=== PATIENT | male | born 1995 | race Caucasian/White ===

== ENCOUNTER 2016-10-26 23:07 | Emergency (ER) | payer OTHER ==
[~2016-10-26] VITALS: Ht 188 cm; Wt 125.7 kg
[~2016-10-26 23:07] MED LIST: BENZ100C84 PO; BUPR-83 PO; CNC/36 PO; CNC/54 PO; IBUP600T44 PO; TOPI100T20 PO
[2016-10-26 23:18] VITALS: TEMP 36.8; Ht 188 cm; Wt 125.7 kg
[2016-10-26] MEDS ORDERED: VNTHFA/IN INH (23:43)
[2016-10-27 00:18] LABS: BASO % 0.7 %; BASO ABS # 0.07 K/uL (0-0.2); COMPLETE YES; EOS % 12.5 %; HEMATOCRIT 43.1 % (42-52); IG% 0.1 %; LYMPH ABS # 3.93 K/uL (1.2-3.4); MEAN CELL VOLUME 81.3 fL (80-100); MEAN CORPUSCULAR HEMOGLOBIN 28.9 pg (25-34); MEAN CORPUSCULAR HGB CONC 35.5 g/dl (32-36); MEAN PLATELET VOLUME 9.5 fL (7.4-10.4); MONO % 7.7 %; PLATELET COUNT 282 K/uL (130-400); WHITE BLOOD COUNT 10.63 K/uL (4.8-10.8)
[2016-10-27 00:35] LABS: CALCIUM 8.6 mg/dl (8.5-10.1); CREATININE 0.84 mg/dl (0.60-1.40); POTASSIUM 3.7 mmol/L (3.5-5.1)
[2016-10-27 00:39] LABS: BENZODIAZEPINE, URINE NEG (NEG); COCAINE,URINE NEG (NEG); PHENCYCLIDINE, URINE NEG (NEG)
[2016-10-27 00:45] LABS: THYROID STIMULATING HORMONE 4.85 uIu/ml (0.300-4.500)
[2016-10-27 01:00] VITALS: BP 147/44; PULSE 59; O2SAT 97
--- NOTE | 2016-10-27 01:09 | EMERGENCY ROOM VISIT NOTE ---
History First contact with patient: 23:24 Chief Complaint: HEAD INJURY (MINOR) Stated Complaint: HEAD INJURY 2WEEKS AGO, BEHAVIOR CHANGES History of Present Illness The patient is a 21 year old male who presents to the Emergency Room with complaints of head injury 2 weeks ago he slipped and fell striking his head on a rock while hiking with his girlfriend. He went to [facility] and they did an x-ray on his chin that was negative. Patient states he has had greater than 10 concussions in his lifetime. Patient states he feels pastrana and has headaches and feels nauseous. He has not gone to rehabilitation for his postconcussion syndrome in the past. Patient denies alcohol, tobacco or drug use. Patient denies chest pain, dyspnea, fever, chills, balance problems, vision problems, delusions, hallucinations, suicidal or homicidal ideations, abdominal pain, vomiting, diarrhea, numbness, tingling. Patient sees a therapist at [facility]. He is unable to recall the name. He states that every 3 months for his ADHD medications and bipolar. No prior mental health hospitalizations. Review of Systems See HPI for pertinent positives & negatives. A total of 10 systems reviewed and were otherwise negative. Past Medical/Surgical History Chronic headaches, bipolar, ADHD, multiple concussions, tonsillectomy, adenectomy Family History No pertinent family history Social History Smoking Status: Never Smoker Alcohol Use: none Drug Use: none Marital Status: in relationship Housing Status: lives with family Occupation Status: employed Current/Historical Medications Scheduled Bupropion (Wellbutrin), 100 MG PO DAILY Methylphenidate Hcl (Concerta), 36 MG PO DAILY Methylphenidate Hcl (Concerta), 54 MG PO DAILY Topiramate (Topamax), 100 MG PO BID Scheduled PRN Albuterol Hfa (Ventolin Hfa), 2 PUFFS INH Q6H PRN for SOB/Wheezing Allergies Coded Allergies: No Known Allergies (Verified , 10/26/16) Physical Exam Vital Signs Date Time Temp Pulse Resp B/P Pulse Ox O2 Delivery O2 Flow Rate FiO2 10/26/16 23:18 36.8 89 20 131/66 96 Room Air Physical Exam VITALS: Vitals are noted on the nurse's note and reviewed by myself. Vital signs stable. GENERAL: Pleasant male, in no acute distress, nondiaphoretic, well-developed well-nourished. SKIN: The skin was without rashes, erythema, edema, or bruising. There is no tenting of the skin. Capillary reflex less than 2 seconds. HEAD: Normocephalic atraumatic. EARS: External auditory canals clear, tympanic membranes pearly olivares without erythema or effusion bilaterally. EYES: Pupils equal round and reactive to light and accommodation. Conjunctivae without injection, sclerae without icterus. Extraocular movements intact. NOSE: Patent, turbinates without inflammation or discharge. No sinus tenderness. MOUTH: Mucous membranes moist. . Pharynx without erythema or exudate. Uvula midline. Airway patent. Tongue does not deviate. NECK: Supple without nuchal rigidity. No lymphadenopathy. No thyromegaly. Cervical spine is nontender. No JVD. HEART: Regular rate and rhythm without murmurs gallops or rubs. LUNGS: Clear to auscultation bilaterally without wheezes, rales or rhonchi. No dullness to percussion. No retractions or accessory muscle use. ABDOMEN: Positive bowel sounds x 4. Normal tympanic percussion. Soft, nontender, without masses or organomegaly. Arce sign negative. No guarding or rebound tenderness. MUSCULOSKELETAL: No muscle atrophy, erythema, or edema noted. NEURO: Patient was alert and oriented to person place and time. Normal sensation to light and sharp touch. No focal neurological deficits. Cranial nerves II-12 grossly intact. Cerebellar exam intact Psych: Cooperative and pleasant Medical Decision & Procedures Laboratory Results 10/27/16 00:05 Red Blood Count 5.30, Mean Corpuscular Volume 81.3, Mean Corpuscular Hemoglobin 28.9, Mean Corpuscular Hemoglobin Concent 35.5, Mean Platelet Volume 9.5, Neutrophils (%) (Auto) 42.0, Lymphocytes (%) (Auto) 37.0, Monocytes (%) (Auto) 7.7, Eosinophils (%) (Auto) 12.5, Basophils (%) (Auto) 0.7, Neutrophils # (Auto ) 4.47, Lymphocytes # (Auto) 3.93, Monocytes # (Auto) 0.82, Eosinophils # (Auto ) 1.33, Basophils # (Auto) 0.07 10/27/16 00:05 Test 10/27/16 00:05 10/27/16 00:10 White Blood Count 10.63 K/uL (4.8-10.8) Red Blood Count 5.30 M/uL (4.7-6.1) Hemoglobin 15.3 g/dL (14.0-18.0) Hematocrit 43.1 % (42-52) Mean Corpuscular Volume 81.3 fL (80-100) Mean Corpuscular Hemoglobin 28.9 pg (25-34) Mean Corpuscular Hemoglobin Concent 35.5 g/dl (32-36) Platelet Count 282 K/uL (130-400) Mean Platelet Volume 9.5 fL (7.4-10.4) Neutrophils (%) (Auto) 42.0 % Lymphocytes (%) (Auto) 37.0 % Monocytes (%) (Auto) 7.7 % Eosinophils (%) (Auto) 12.5 % Basophils (%) (Auto) 0.7 % Neutrophils # (Auto) 4.47 K/uL (1.4-6.5) Lymphocytes # (Auto) 3.93 K/uL (1.2-3.4) Monocytes # (Auto) 0.82 K/uL (0.11-0.59) Eosinophils # (Auto) 1.33 K/uL (0-0.5) Basophils # (Auto) 0.07 K/uL (0-0.2) RDW Standard Deviation 39.5 fL (36.4-46.3) RDW Coefficient of Variation 13.3 % (11.5-14.5) Immature Granulocyte % (Auto) 0.1 % Immature Granulocyte # (Auto) 0.01 K/uL (0.00-0.02) Anion Gap 11.0 mmol/L (3-11) Est Creatinine Clear Calc Drug Dose 194.4 ml/min Estimated GFR () 144.0 Estimated GFR (Non- 124.3 BUN/Creatinine Ratio 24.0 (10-20) Calcium Level 8.6 mg/dl (8.5-10.1) Thyroid Stimulating Hormone (TSH) 4.850 uIu/ml (0.300-4.500) Urine Opiates Screen NEG (NEG) Urine Methadone, Qualitative NEG (NEG) Urine Barbiturates NEG (NEG) Urine Phencyclidine (PCP) Level NEG (NEG) Ur Amphetamine/Methamphetamine NEG (NEG) MDMA (Ecstasy) Screen NEG (NEG) Urine Benzodiazepines Screen NEG (NEG) Urine Cocaine Metabolite NEG (NEG) Urine Marijuana (THC) NEG (NEG) ED Course Prior records/ancillary studies reviewed. Triage Nursing notes reviewed. Additional history obtained from family. The patient's history was concerning for traumatic head injury Differential diagnosis: Etiologies such as concussion, contusion, fracture, subdural hematoma, epidural hematoma, intraparenchymal hemorrhage, as well as other traumatic pathologies were entertained. Physical examination findings: As above. ER treatment provided: Patient was observed On reassessment the patient felt better. Diagnostics interpreted by me: The labs revealed no worrisome leukocytosis or electrolyte abnormality. Negative UDS Imaging studies: Brain CT was read by stat radiology negative for intracranial bleed or fracture It appears the patient has a concussion. I discussed the risks and the benefits of CT scanning. Clinically the patient is doing well but is pastrana and is having increasing symptoms so CT imaging was ordered. I gave my usual and customary discussion regarding this issue. Patient was strongly encouraged to follow-up with the concussion clinic here in [facility]. He was informed that multiple concussions can lead to early onset dementia and chronic symptoms. He states he is well aware this. He was strongly encouraged to follow-up family medicine in a few days or here in the ER sooner for headache, fevers, vomiting, lethargy , worsening signs or symptoms or as needed. Patient was neurovascularly and neurologically intact. He was well-appearing. No deficits on exam.By the evaluation outlined above emergent etiologies such as fracture, subdural hematoma, epidural hematoma, intraparenchymal hemorrhage, as well as others were deemed relatively unlikely. The pt informed about the findings as listed above. All questions were answered and pleased with the treatment. Return instructions were outlined and the patient was discharged in stable condition. Outpatient Prescription Management: jeannefran Referral: The patient was referred back to their primary care physician for follow-up in 2 to 3 days for a recheck of the current condition. Medical Decision as above Impression Primary Impression: Postconcussion syndrome Departure Information Dispostion Home / Self-Care Condition GOOD Referrals Jesse Turner III, M.D. (PCP) Patient Instructions My [facility] Additional Instructions Recommend follow up with the concussion clinic here in [facility]. Call tomorrow morning at 8 AM for an appointment. [phone] Read head injury handout and return for any symptoms. Tylenol 1000 mg as needed for pain (Maximum 3000 mg Tylenol in 24 hr period). Avoid alcohol and contact sports/activities for one week and follow up with family doctor prior to returning to these activities if still symptomatic. Ice and elevate head. Return to ER sooner for severe headache, fevers, vomiting, lethargy, worsening signs or symptoms or as needed.
--- NOTE | 2016-10-27 07:16 | DIAGNOSTIC IMAGING REPORT ---
HEAD CT NONCONTRAST CT DOSE: 537.48 mGy.cm HISTORY: head injury TECHNIQUE: Multiaxial CT images of the head were performed without the use of intravenous contrast. Automated exposure control was utilized for this study. Comparison: None. Findings: The paranasal sinuses and mastoid air cells are clear. The calvarium and skull base are intact. The ventricles and sulci are within normal limits. There is no mass, hematoma, midline shift, or acute infarct. Impression: No acute intracranial abnormality. Electronically signed by: Bairon Hayward M.D. 10/27/2016 7:14 AM Dictated Date/Time: 10/27/2016 7:12 AM
== END 2016-10-27 01:30 | disposition home or self-care (01) ==
LOC: C.EDB 23:10
DX: F07.81 Postconcussional syndrome (principal); F31.9 Bipolar disorder, unspecified; F90.9 Attention-deficit hyperactivity disorder, unspecified type; Z79.899 Other long term (current) drug therapy

== ENCOUNTER 2017-07-02 10:03 | Emergency (ER) | payer BC, OTHER ==
[~2017-07-02] VITALS: Ht 188 cm; Wt 128.5 kg
[~2017-07-02 10:03] MED LIST changes: -BENZ100C84 PO; -IBUP600T44 PO; +VNTHFA/IN INH
[2017-07-02 10:16] VITALS: TEMP 36.6; Ht 188 cm; Wt 128.5 kg
[2017-07-02] MEDS ORDERED: AMPH20TA2 PO (10:51)
[2017-07-02] MEDS ORDERED: BUPR-102 PO (10:51)
[2017-07-02] MEDS ORDERED: AMPH20CA3 PO (10:51)
--- NOTE | 2017-07-02 11:04 | DIAGNOSTIC IMAGING REPORT ---
L ANKLE MIN 3 VIEWS ROUTINE HISTORY: 22 years-old Male LEFT ANKLE PAIN acute left ankle pain COMPARISON: Left ankle radiographs 12/27/2005 TECHNIQUE: 3 views of the left ankle FINDINGS: There is moderate soft tissue swelling about the ankle, greatest anterolaterally. Small joint effusion. No acute fracture, dislocation or osteochondral defect. No opaque foreign body. IMPRESSION: Moderate soft tissue swelling without acute bony abnormality. The above report was generated using voice recognition software. It may contain grammatical, syntax or spelling errors. Electronically signed by: Julio Thomas M.D. 07/02/2017 11:03 AM Dictated Date/Time: 07/02/2017 11:01 AM
[2017-07-02 11:38] VITALS: BP 125/71; PULSE 51; O2SAT 97
--- NOTE | 2017-07-02 17:16 | EMERGENCY ROOM VISIT NOTE ---
ED Visit Note First contact with patient: 10:25 Chief complaint: Left ankle pain. HPI: This 22-year-old white male presents to the emergency room for evaluation of his left ankle. The patient injured the ankle last night when he was getting out of bed and tripped. He fell to the floor and inverted his ankle. Since that time, they have had persistent pain over the lateral portion of the ankle. They deny any numbness or tingling. Pain is worse with weight-bearing. He was walking with a limp. He states that he had some additional popping and now it does not hurt as much. No knee or hip pain. Treatment has consisted of ice provided in the ER. No prior history of significant ankle injury. Pain is 3/10. REVIEW OF SYSTEM: HEENT: No dizziness, visual problems, hearing loss, tinnitus. There is no difficulty swallowing and no oral lesions are present. LYMPH: No adenopathy. PULMONARY: No cough, sputum production or hemoptysis. CARDIOVASCULAR: No chest pain, palpitations, or peripheral edema. GASTROINTESTINAL: No diarrhea, constipation, nausea, vomiting, or abdominal pain. GENITOURINARY: No dysuria, frequency, urgency or nocturia. NEUROLOGIC: No weakness, muscle tenderness, epilepsy or history of neurological problems. MUSCULOSKELETAL: No history of joint tenderness/swelling. No history of arthritis or arthralgias. SKIN: No rashes or lesions. PSYCHIATRIC: No history of depression, positive history of ADHD. ENDOCRINE: No history of diabetes, thyroid disorders, abnormal hair growth. PAST MEDICAL HISTORY: Supplemental sheet was reviewed and signed. Previous surgeries: Multiple surgeries, patient does not list. Medical history: Significant for ADHD and asthma Current medications: Adderall, albuterol, bupropion Allergies: NKDA Family history: Significant for diabetes, heart disease, hypertension, cancer, kidney stones, seizures. Parents are living. Social history: Employed. No tobacco use, no EtOH use. PHYSICAL EXAM: Vitals: Afebrile. Reviewed and filed in patient's chart General: Well-developed, well-nourished, young white male, in obvious discomfort. No acute distress. He is sitting on a bed. Alert and oriented. Skin:Warm and dry with good turgor. No rashes or lesions. No erythema. The patient is not diaphoretic. No abrasions. Edema and ecchymosis are present over the lateral malleolus and lateral foot. Musculoskeletal: Left ankle evaluation reveals no pain with palpation across the knee or proximal tibia or fibula. There is pain with palpation over the lateral malleolus and the lateral ligaments. No pain over the medial malleolus or deltoid ligament. Achilles' tendon is palpated to its entirety and found to be intact and without defect. Normal Finch test. No pain with palpation of the calcaneus, fifth metatarsal base, midfoot, forefoot, or toes. Motor function to the toes is intact and unremarkable. Motor function to the ankle is intact but range of motion is limited by pain. Strength is 5/5 for resisted motion. Positive anterior drawer, negative calcaneal tilt. Neurologic: Gross sensation is intact across all aspects of the foot and ankle via soft touch. Peripheral pulses are 2+. Data: Radiographic images of the ankle were obtained today and were reviewed by me as well as radiology. They are unremarkable for fracture or other bony abnormality. IMPRESSION: Left ankle sprain. PLAN: The patient was educated regarding today's findings. Conservative care measures were discussed. Patient was given the option of an ankle gel splint or obtaining a splint at a sporting provider such as [employer] or [employer]. He elected to obtain the splint there. It should be used for support for the next 4 weeks. It may be removed for bathing and sleep. It should be used for a few additional weeks for sporting events only. He does not require crutches at this point. Weight-bear as tolerable. Gentle motion daily. Ice and elevate intermittently over the next 3 days, after which he may switch to moist heat. Lower leg should be elevated at night during sleep. Tylenol and ibuprofen every 6 hours as needed for discomfort. Sprain handout was provided. Return to the ER for any acute changes. Follow-up with his PCP or orthopedist if not improving in 5 to 7 days. He is popping with motion was discussed. It is likely tendon related. It is not painful. He will continue to monitor. Current/Historical Medications Scheduled Amphetamine-Dextroamphetamine 20MG (Adderall 20MG), 20 MG PO QAM Amphetamine-Dextroamphetamine 20MG (Adderall Xr 20MG), 20 MG PO QAM Bupropion Hcl (Smoking [place] (Bupropion Hcl Sr), 150 MG PO BID Scheduled PRN Albuterol Hfa (Ventolin Hfa), 2 PUFFS INH Q6H PRN for SOB/Wheezing Allergies Coded Allergies: No Known Allergies (Verified , 07/02/17) Vital Signs Date Time Temp Pulse Resp B/P (MAP) Pulse Ox O2 Delivery O2 Flow Rate FiO2 07/02/17 11:38 51 18 125/71 97 07/02/17 10:16 36.6 84 18 130/75 97 Room Air Departure Information Impression Primary Impression: Left ankle sprain Dispostion Home / Self-Care Condition GOOD Forms HOME CARE DOCUMENTATION FORM, MOTRIN USE, TYLENOL USE, IMPORTANT VISIT INFORMATION Patient Instructions My [employer] Additional Instructions weight-bear as tolerable Ice and elevate intermittently x3 days, and then use moist heat Tylenol and ibuprofen every 6 hours as needed for pain Gentle motion daily See your PCP or orthopedist if not improving over 5-7 days Use gel splint at all times other than bathing and sleep for 4 weeks, and then use it for an additional 2 weeks for any sporting activity
== END 2017-07-02 11:39 | disposition home or self-care (01) ==
LOC: C.EDB 10:04 → C.EDA 11:39
DX: S93.402A Sprain of unspecified ligament of left ankle, initial encounter (principal); W01.0XXA Fall on same level from slipping, tripping and stumbling without subsequent striking against object, initial encounter; Y92.009 Unspecified place in unspecified non-institutional (private) residence as the place of occurrence of the external cause; F90.9 Attention-deficit hyperactivity disorder, unspecified type; J45.909 Unspecified asthma, uncomplicated